=== PATIENT | female | born 1975 | race Caucasian/White ===

== ENCOUNTER 2024-03-03 09:05 | Day surgery (SDC) | payer OTHER ==
[~2024-03-03] VITALS: Ht 175.3 cm; Wt 86.2 kg
[2024-03-03] MEDS ORDERED: fentaNYL citrate 0.05 MG/ML VIAL ONE (10:10)
[2024-03-03] MEDS: fentaNYL citrate 0.05 MG/ML VIAL IVP ONE (10:21)
== END 2024-03-03 11:35 | disposition home or self-care (01) ==
LOC: MDS 09:05 → MMU 09:08 → MDS 11:35
PROVIDERS: ATTEND Internal Medicine Gastroenterology
DX: Z12.11 Encounter for screening for malignant neoplasm of colon (principal); K57.30 Diverticulosis of large intestine without perforation or abscess without bleeding; Z90.710 Acquired absence of both cervix and uterus; Z98.891 History of uterine scar from previous surgery; Z79.899 Other long term (current) drug therapy; Z98.890 Other specified postprocedural states
CPT/HCPCS: 45378; J3010